=== PATIENT | male | born 1970 | race Caucasian/White ===

== ENCOUNTER 2021-09-25 12:35 | Emergency (ER) | payer MEDICAID ==
[~2021-09-25] VITALS: Ht 167.6 cm; Wt 78.0 kg
[2021-09-25 12:43] VITALS: BP 148/81
[2021-09-25] MEDS ORDERED: ACETAMINOPHEN 325MG TABLET PO ONE (13:00)
[2021-09-25] MEDS ORDERED: TETANUS, DIPHTHERIA, PERTUSSIS VAC/PF 0.5ML (>10YR OLD) IM ONE ×2 (13:00→16:30)
[2021-09-25] MEDS ORDERED: BACITRACIN ZINC OINT UDPKT TOP ONE (13:00)
[2021-09-25] MEDS ORDERED: LIDOCAINE HCL/PF 1% 10 MG/ML 5ML VIAL INFIL ONE (13:00)
[2021-09-25] MEDS ORDERED: ACETAMINOPHEN 325MG TABLET PO NR (16:22)
[2021-09-25] MEDS ORDERED: BACITRACIN ZINC OINT UDPKT TOP NR (16:23)
[2021-09-25] MEDS ORDERED: LIDOCAINE HCL/PF 1% 10 MG/ML 5ML VIAL INFIL NR (16:23)
[2021-09-25] MEDS ORDERED: CEPH500T MT (18:49)
[2021-09-25] MEDS ORDERED: IBUP-2029 MT (18:49)
== END 2021-09-25 20:20 | disposition home or self-care (01) ==
LOC: ER 12:35
DX: S61.212A Laceration without foreign body of right middle finger without damage to nail, initial encounter (principal); W25.XXXA Contact with sharp glass, initial encounter; R03.0 Elevated blood-pressure reading, without diagnosis of hypertension; Y93.89 Activity, other specified; Y92.89 Other specified places as the place of occurrence of the external cause
CPT/HCPCS: 12001; 90471; 90715; 99283; J3490